=== PATIENT | male | born 1940 | race Caucasian/White ===

== ENCOUNTER → 2016-06-21 | Outpatient (REF) | payer MEDICARE, OTHER ==
[2016-06-23 00:06] LABS: PSA FREE 1.17 ng/mL; PSA TOTAL 6.5 ng/mL (0.0-4.0)
== END ==
LOC: M LAB REF 12:39
PROVIDERS: ATTEND Internal Medicine
DX: R97.20 Elevated prostate specific antigen [PSA] (principal)

== ENCOUNTER → 2016-12-27 | Outpatient (REF) | payer MEDICARE, OTHER ==
[2016-12-28 14:13] LABS: PSA % FREE 22.1 % (.); PSA FREE 1.15 ng/mL; PSA TOTAL 5.2 ng/mL (0.0-4.0)
== END ==
LOC: M LAB REF 13:37
PROVIDERS: ATTEND Internal Medicine
DX: R97.20 Elevated prostate specific antigen [PSA] (principal)

== ENCOUNTER → 2017-07-04 | Outpatient (REF) | payer MEDICARE, OTHER ==
[2017-07-05 14:57] LABS: PSA % FREE 23.8 % (.); PSA FREE 1.19 ng/mL
== END ==
LOC: M LAB REF 13:10
DX: R97.20 Elevated prostate specific antigen [PSA] (principal)
CPT/HCPCS: 84154

== ENCOUNTER → 2019-01-14 | Outpatient (REF) | payer MEDICARE, OTHER ==
[2019-01-16 00:08] LABS: PSA % FREE 25.5 % (.); PSA FREE 1.2 ng/mL; PSA TOTAL 4.7 ng/mL (0.0-4.0)
== END ==
LOC: M LAB REF 13:34
PROVIDERS: ATTEND Internal Medicine
DX: R97.20 Elevated prostate specific antigen [PSA] (principal)

== ENCOUNTER → 2020-02-04 | Outpatient (REF) | payer MEDICARE, OTHER ==
[2020-02-05 23:07] LABS: PSA % FREE 30.9 % (.); PSA FREE 1.45 ng/mL; PSA TOTAL 4.7 ng/mL (0.0-4.0)
== END ==
LOC: M LAB REF 12:28
PROVIDERS: ATTEND Internal Medicine
DX: R97.20 Elevated prostate specific antigen [PSA] (principal); E29.1 Testicular hypofunction

== ENCOUNTER → 2021-10-13 | Outpatient (REF) | payer MEDICARE, OTHER ==
[2021-10-13 13:38] LABS: FOLATE 8.9 NG/ML
== END ==
LOC: M LAB REF 12:39
PROVIDERS: ATTEND Internal Medicine
DX: R41.81 Age-related cognitive decline (principal)

== ENCOUNTER → 2021-11-03 | Outpatient (CLI) | payer MEDICARE, BC, OTHER | LOC: M PLAIMG 10:09 | PROVIDERS: ATTEND Internal Medicine | DX: R41.81 Age-related cognitive decline (principal) ==

== ENCOUNTER → 2022-02-15 | Outpatient (REF) | payer MEDICARE, BC, OTHER ==
[2022-02-16 13:09] LABS: PSA % FREE 25.6 % (.); PSA FREE 1.59 ng/mL; PSA TOTAL 6.2 ng/mL (0.0-4.0)
== END ==
LOC: M LAB REF 12:04
PROVIDERS: ATTEND Internal Medicine
DX: R97.20 Elevated prostate specific antigen [PSA] (principal)

== ENCOUNTER → 2022-06-07 | Outpatient (REF) | payer MEDICARE, BC, OTHER ==
[2022-06-07 15:18] LABS: FOLATE 7.8 NG/ML (>5.4)
[2022-06-08 19:08] LABS: ALBUMIN 3.6 g/dL (2.9-4.4); ALPHA-1-GLOBULINS 0.3 g/dL (0.0-0.4); ALPHA-2-GLOBULINS 0.7 g/dL (0.4-1.0); BETA-1-GLOBULINS 0.9 g/dL (0.7-1.3); GAMMA GLOBULINS 1.1 g/dL (0.4-1.8); TOTAL PROTEIN ELECTROPHORESIS 6.6 g/dL (6.0-8.5)
== END ==
LOC: M LAB REF 12:20
PROVIDERS: ATTEND Internal Medicine
DX: E53.8 Deficiency of other specified B group vitamins (principal); R26.89 Other abnormalities of gait and mobility; G60.9 Hereditary and idiopathic neuropathy, unspecified

== ENCOUNTER → 2022-06-16 | Outpatient (CLI) | payer MEDICARE, BC, OTHER ==
[~2022-06-16] MED LIST: E-Z-GAS II EFFERVESCENT PACKET (SODIUM BICARB./CITRIC ACID/SIMETHICONE) As Ordered ONE; E-Z-HD 98% w/w 340GM SUSP BTL As Ordered ONE; E-Z-PAQUE 96% w/w SUSP 176GM BTL As Ordered ONE
== END ==
LOC: M RAD 07:23
PROVIDERS: ATTEND Internal Medicine
DX: R13.12 Dysphagia, oropharyngeal phase (principal); K44.9 Diaphragmatic hernia without obstruction or gangrene

== ENCOUNTER → 2023-02-19 | Outpatient (REF) | payer MEDICARE, BC, OTHER ==
[2023-02-21 23:09] LABS: PSA % FREE 22.4 % (.); PSA FREE 1.99 ng/mL; PSA TOTAL 8.9 ng/mL (0.0-4.0)
== END ==
LOC: M LAB REF 16:30
PROVIDERS: ATTEND Internal Medicine
DX: R97.20 Elevated prostate specific antigen [PSA] (principal)

== ENCOUNTER 2023-03-07 08:16 | Outpatient (RCR) | payer MEDICARE, BC, OTHER | END 2023-04-05 | LOC: M ST 08:16 | PROVIDERS: ATTEND Internal Medicine | DX: R13.12 Dysphagia, oropharyngeal phase (principal) ==

== ENCOUNTER → 2023-03-07 | Outpatient (CLI) | payer MEDICARE, BC, OTHER | LOC: M PLAIMG 13:09 | PROVIDERS: ATTEND Internal Medicine | DX: R63.4 Abnormal weight loss (principal); R05.9 Cough, unspecified; J47.9 Bronchiectasis, uncomplicated; J98.11 Atelectasis; R91.8 Other nonspecific abnormal finding of lung field ==

== ENCOUNTER → 2023-04-23 | Outpatient (CLI) | payer MEDICARE, BC, OTHER ==
[~2023-04-23] MED LIST changes: +BARIUM SULFATE 700 MG TABLET (E-Z-DISK) As Ordered ONE; -E-Z-GAS II EFFERVESCENT PACKET (SODIUM BICARB./CITRIC ACID/SIMETHICONE) As Ordered ONE; -E-Z-HD 98% w/w 340GM SUSP BTL As Ordered ONE; +VARIBAR NECTAR 40% w/v 240ML SUSP BTL As Ordered ONE; +VARIBAR PUDDING 40% w/v 230ML TUBE As Ordered ONE
== END ==
LOC: M RAD 12:49
PROVIDERS: ATTEND Internal Medicine
DX: R13.12 Dysphagia, oropharyngeal phase (principal)

== ENCOUNTER 2023-06-04 09:33 | Outpatient (RCR) | payer MEDICARE, BC, OTHER | END 2023-06-06 | LOC: M ST 09:33 | PROVIDERS: ATTEND Internal Medicine | DX: R13.12 Dysphagia, oropharyngeal phase (principal) ==

== ENCOUNTER → 2023-08-01 | Outpatient (REF) | payer MEDICARE, BC, OTHER ==
[2023-08-01 14:05] LABS: FOLATE > 24.0 NG/ML (>5.4); VITAMIN B12 LEVEL 666 PG/ML (211-911)
== END ==
LOC: M LAB REF 13:01
PROVIDERS: ATTEND Internal Medicine
DX: E53.8 Deficiency of other specified B group vitamins (principal)

== ENCOUNTER 2023-08-14 13:56 | Emergency (ER) | payer MEDICARE, BC, OTHER ==
[~2023-08-14] VITALS: Ht 175.3 cm; Wt 67.2 kg
[2023-08-14] MEDS ORDERED: MULT1TAB8 PO (14:27)
[2023-08-14 20:43] LABS: BLOOD UREA NITROGEN 27 MG/DL (9-23); CALCIUM LEVEL 9.6 MG/DL (8.3-10.6); CARBON DIOXIDE LEVEL 32 MMOL/L (20-31); CHLORIDE LEVEL 105 MMOL/L (98-107); CREATININE FOR GFR 0.77 MG/DL (0.70-1.30); GLOMERULAR FILTRATION RATE > 60.0 (>35); GLUCOSE, FASTING 108 MG/DL (74-106); MAGNESIUM LEVEL 1.9 MG/DL (1.8-2.4); POTASSIUM SERUM 4.1 MMOL/L (3.5-5.1); SODIUM LEVEL 140 MMOL/L (136-145)
[2023-08-14 21:29] VITALS: BP 123/94; TEMP 98.6; O2SAT 96
== END 2023-08-14 21:31 | disposition home or self-care (01) ==
LOC: M ED 13:56
DX: S00.81XA Abrasion of other part of head, initial encounter (principal); W06.XXXA Fall from bed, initial encounter; I49.8 Other specified cardiac arrhythmias; I49.3 Ventricular premature depolarization; I44.4 Left anterior fascicular block; Z79.899 Other long term (current) drug therapy; Z91.048 Other nonmedicinal substance allergy status; Y92.009 Unspecified place in unspecified non-institutional (private) residence as the place of occurrence of the external cause; Y93.89 Activity, other specified; Y99.9 Unspecified external cause status

== ENCOUNTER → 2023-08-29 | Outpatient (CLI) | payer MEDICARE, BC ==
[~2023-08-29] MED LIST changes: -BARIUM SULFATE 700 MG TABLET (E-Z-DISK) As Ordered ONE; -E-Z-PAQUE 96% w/w SUSP 176GM BTL As Ordered ONE; +MULT1TAB8 PO; -VARIBAR NECTAR 40% w/v 240ML SUSP BTL As Ordered ONE; -VARIBAR PUDDING 40% w/v 230ML TUBE As Ordered ONE
== END ==
LOC: M PLAIMG 11:11
PROVIDERS: ATTEND Internal Medicine
DX: R41.81 Age-related cognitive decline (principal)

== ENCOUNTER 2024-01-29 07:15 | Emergency (ER) | payer MEDICARE, BC ==
[~2024-01-29] VITALS: Ht 180.3 cm; Wt 66.6 kg
[2024-01-29] MEDS ORDERED: ISOVUE-370 76% 100ML VIAL As Ordered ONE (07:57)
[2024-01-29 08:10] LABS: BASO % 0.2 % (0.0-1.0); HEMATOCRIT 40.1 % (42.0-52.0); HEMOGLOBIN 14.1 g/dl (13.5-17.5); LYMPH # 0.8 10^3/uL (1.5-5.0); LYMPH % 6.2 % (24.0-44.0); MEAN CORPUSCULAR HEMOGLOBIN 33.4 pg (27.0-33.0); MEAN CORPUSCULAR HGB CONC 35.2 g/dl (32.0-36.5); MONO # 1.5 10^3/uL (0.0-0.8); MONO % 11.5 % (2.0-8.0); NEUTROPHILS # 10.9 10^3/uL (1.5-8.5); NEUTROPHILS % 81.7 % (36.0-66.0); PLATELET COUNT, AUTOMATED 196 10^3/uL (150-450); RED BLOOD COUNT 4.22 10^6/uL (4.30-6.10); WHITE BLOOD COUNT 13.4 10^3/uL (4.0-10.0)
[2024-01-29 08:25] LABS: INR 1.39; PARTIAL THROMBOPLASTIN TIME 30.8 SECONDS (24.8-34.2); PROTHROMBIN TIME 16.6 SECONDS (12.5-14.5)
[2024-01-29 08:44] LABS: CK-MB VALUE MASS < 1.0 NG/ML (<3.6)
[2024-01-29 08:46] LABS: BLOOD UREA NITROGEN 17 MG/DL (9-23); CALCIUM LEVEL 9.3 MG/DL (8.3-10.6); CARBON DIOXIDE LEVEL 29 MMOL/L (20-31); CHLORIDE LEVEL 101 MMOL/L (98-107); CPK CREATINE PHOSPHOKINASE 149 U/L (46-171); CREATININE FOR GFR 0.79 MG/DL (0.70-1.30); GLOMERULAR FILTRATION RATE > 60.0 (>35); GLUCOSE, FASTING 140 MG/DL (74-106); MB/CK RELATIVE INDEX 0.67 (< OR =4); POTASSIUM SERUM 4.5 MMOL/L (3.5-5.1); SODIUM LEVEL 137 MMOL/L (136-145)
[2024-01-29 08:52] LABS: PROCALCITONIN 0.15 ng/ml
[2024-01-29 09:28] LABS: CK-MB VALUE MASS 1.1 NG/ML (<3.6)
[2024-01-29 09:32] LABS: MB/CK RELATIVE INDEX 0.7 (< OR =4)
[2024-01-29] MEDS: NS 500 ML IV ONE (10:19)
[2024-01-29] MEDS: ACETAMINOPHEN TAB 650MG DOSE (2X325MG) PO ONE (10:19)
[2024-01-29] MEDS ORDERED: LEVO750T14 PO (10:59)
[2024-01-29] MEDS: LevoFLOXacin 750 MG TABLET PO ONE (11:15)
[2024-01-29 11:20] VITALS: BP 147/68; TEMP 98.3; O2SAT 94
== END 2024-01-29 11:45 | disposition home or self-care (01) ==
LOC: EDBD 07:15 → M ED 07:15
DX: J18.9 Pneumonia, unspecified organism (principal); R53.81 Other malaise; J98.11 Atelectasis; I44.4 Left anterior fascicular block; J45.909 Unspecified asthma, uncomplicated; I10 Essential (primary) hypertension; F03.90 Unspecified dementia, unspecified severity, without behavioral disturbance, psychotic disturbance, mood disturbance, and anxiety; Z79.899 Other long term (current) drug therapy; Z79.2 Long term (current) use of antibiotics; Z88.0 Allergy status to penicillin; Z88.1 Allergy status to other antibiotic agents
CPT/HCPCS: 70450; 70496; 70498; 71045; 80047; 80048; 81001; 82140; 82550; 82553; 83605; 84145; 84484; 85025; 85610; 85730; 86850; 86900; 86901; 87040; 87486; 87581; 87633; 87798; 93005; 93041; 94760; 96360; 99285; Q9967

== ENCOUNTER 2024-02-01 05:49 | Inpatient (IN) | payer MEDICARE, BC ==
[~2024-02-01] VITALS: Ht 180.3 cm; Wt 66.6 kg
[~2024-02-01 05:49] MED LIST changes: +LEVO750T14 PO
[2024-02-01 06:30] LABS: BASO % 0.6 % (0.0-1.0); EOS # 0.1 10^3/uL (0.0-0.5); EOS % 0.8 % (0.0-3.0); HEMATOCRIT 36.6 % (42.0-52.0); HEMOGLOBIN 12.7 g/dl (13.5-17.5); LYMPH # 0.8 10^3/uL (1.5-5.0); LYMPH % 10.8 % (24.0-44.0); MEAN CORPUSCULAR HEMOGLOBIN 33.6 pg (27.0-33.0); MEAN CORPUSCULAR HGB CONC 34.7 g/dl (32.0-36.5); MEAN CORPUSCULAR VOLUME 96.8 fl (80.0-96.0); MONO # 0.6 10^3/uL (0.0-0.8); MONO % 8.9 % (2.0-8.0); NEUTROPHILS # 5.7 10^3/uL (1.5-8.5); NEUTROPHILS % 78.5 % (36.0-66.0); PLATELET COUNT, AUTOMATED 229 10^3/uL (150-450); RED BLOOD COUNT 3.78 10^6/uL (4.30-6.10); WHITE BLOOD COUNT 7.2 10^3/uL (4.0-10.0)
[2024-02-01 06:50] LABS: ALBUMIN 2.7 G/DL (3.2-5.2); ALKALINE PHOSPHATASE 69 U/L (46-116); ALT/SGPT 22 U/L (7.0-40); AST/SGOT 26 U/L (<34); BILIRUBIN,DIRECT 0.3 MG/DL (<0.4); BILIRUBIN,TOTAL 0.8 MG/DL (0.3-1.2); BLOOD UREA NITROGEN 19 MG/DL (9-23); CALCIUM LEVEL 9.5 MG/DL (8.3-10.6); CARBON DIOXIDE LEVEL 28 MMOL/L (20-31); CHLORIDE LEVEL 106 MMOL/L (98-107); CREATININE FOR GFR 0.74 MG/DL (0.70-1.30); GLOMERULAR FILTRATION RATE > 60.0 (>35); GLUCOSE, FASTING 124 MG/DL (74-106); POTASSIUM SERUM 4.2 MMOL/L (3.5-5.1); SODIUM LEVEL 138 MMOL/L (136-145); TOTAL PROTEIN 6.2 G/DL (5.7-8.2)
[2024-02-01] MEDS ORDERED: HOME MED LIST COMPLETE! XX SCH (11:35)
[2024-02-01] MEDS ORDERED: THERTAB52 PO (11:35)
[2024-02-01] MEDS ORDERED: LEVO1TAB40 PO (11:35)
[2024-02-01] MEDS ORDERED: IPRATROPIUM 0.5MG/ALBUTEROL 2.5MG INH SOL UD 3ML (DUONEB) NEB PRN (13:15)
[2024-02-01] MEDS ORDERED: ISOVUE-370 76% 100ML VIAL As Ordered ONE (13:22)
[2024-02-01 15:25] LABS: THYROID STIMULATING HORMONE 2.478 uIU/ML (0.55-4.78)
[2024-02-01 15:34] LABS: CPK CREATINE PHOSPHOKINASE 117 U/L (46-171); PROCALCITONIN 0.11 ng/ml
[2024-02-01] MEDS: cefTRIAXone SOD 1 GM in DEXTROSE 5% (D5W) ADV/MINI-BAG 50 ML IV SCH (17:03)
[2024-02-01 17:41] VITALS: BP 179/101; TEMP 98.6; O2SAT 97
[2024-02-01] MEDS: DOXYCYCLINE HYCLATE 100 MG in D5W MINI-BAG PLUS 100 ML IV SCH (18:31)
[2024-02-01] MEDS: amLODIPine 5 MG TAB PO ONE (19:19)
[2024-02-01 20:00] VITALS: O2SAT 95
[2024-02-01] MEDS: SYMBICORT 80/4.5MCG INHALER 6GM INH SCH (20:11)
[2024-02-01] MEDS: IPRATROPIUM 0.5MG/ALBUTEROL 2.5MG INH SOL UD 3ML (DUONEB) NEB SCH (20:11)
[2024-02-01 20:27] VITALS: BP 155/79; TEMP 98.6; O2SAT 93
[2024-02-01] MEDS: RAMELTEON 8 MG TAB (ROZEREM) PO PRN (20:58)
[2024-02-02] VITALS: O2SAT 79
[2024-02-02 03:12] VITALS: BP 132/85; TEMP 98.6; O2SAT 95
[2024-02-02 06:49] LABS: HEMATOCRIT 37.3 % (42.0-52.0); HEMOGLOBIN 12.6 g/dl (13.5-17.5); MEAN CORPUSCULAR HEMOGLOBIN 32.1 pg (27.0-33.0); MEAN CORPUSCULAR HGB CONC 33.8 g/dl (32.0-36.5); MEAN CORPUSCULAR VOLUME 95.2 fl (80.0-96.0); PLATELET COUNT, AUTOMATED 297 10^3/uL (150-450); RED BLOOD COUNT 3.92 10^6/uL (4.30-6.10); WHITE BLOOD COUNT 8.3 10^3/uL (4.0-10.0)
[2024-02-02 07:11] LABS: BLOOD UREA NITROGEN 15 MG/DL (9-23); CALCIUM LEVEL 9.7 MG/DL (8.3-10.6); CARBON DIOXIDE LEVEL 28 MMOL/L (20-31); CHLORIDE LEVEL 103 MMOL/L (98-107); CREATININE FOR GFR 0.64 MG/DL (0.70-1.30); GLOMERULAR FILTRATION RATE > 60.0 (>35); GLUCOSE, FASTING 134 MG/DL (74-106); POTASSIUM SERUM 3.9 MMOL/L (3.5-5.1); SODIUM LEVEL 137 MMOL/L (136-145)
[2024-02-02] MEDS: ENOXAPARIN 40MG/0.4ML SYRINGE (J1650 PER 10MG) SC SCH (08:50)
[2024-02-02 11:48] VITALS: O2SAT 93
[2024-02-02 12:00] VITALS: BP 157/78; TEMP 98.6; O2SAT 95
[2024-02-02 14:33] VITALS: O2SAT 89
[2024-02-02 20:00] VITALS: BP 102/58; TEMP 98.1; O2SAT 93; O2SAT 94
[2024-02-02] MEDS: QUEtiapine FUMARATE 25 MG TAB PO SCH (20:47)
[2024-02-03] VITALS (9 sets, daily range): BP systolic 103–133; BP diastolic 49–65; TEMP 97–98.4; O2SAT 68–93
[2024-02-03 07:04] LABS: BASO % 0.3 % (0.0-1.0); EOS # 0.1 10^3/uL (0.0-0.5); EOS % 0.6 % (0.0-3.0); HEMATOCRIT 38.4 % (42.0-52.0); HEMOGLOBIN 12.7 g/dl (13.5-17.5); LYMPH # 0.8 10^3/uL (1.5-5.0); LYMPH % 6.2 % (24.0-44.0); MEAN CORPUSCULAR HEMOGLOBIN 32.2 pg (27.0-33.0); MEAN CORPUSCULAR HGB CONC 33.1 g/dl (32.0-36.5); MEAN CORPUSCULAR VOLUME 97.2 fl (80.0-96.0); MONO # 0.9 10^3/uL (0.0-0.8); MONO % 7.2 % (2.0-8.0); NEUTROPHILS # 10.6 10^3/uL (1.5-8.5); NEUTROPHILS % 85.4 % (36.0-66.0); PLATELET COUNT, AUTOMATED 314 10^3/uL (150-450); RED BLOOD COUNT 3.95 10^6/uL (4.30-6.10); WHITE BLOOD COUNT 12.4 10^3/uL (4.0-10.0)
[2024-02-03 07:47] LABS: BLOOD UREA NITROGEN 22 MG/DL (9-23); CALCIUM LEVEL 9.2 MG/DL (8.3-10.6); CARBON DIOXIDE LEVEL 30 MMOL/L (20-31); CHLORIDE LEVEL 103 MMOL/L (98-107); CREATININE FOR GFR 0.81 MG/DL (0.70-1.30); GLOMERULAR FILTRATION RATE > 60.0 (>35); GLUCOSE, FASTING 137 MG/DL (74-106); POTASSIUM SERUM 4.5 MMOL/L (3.5-5.1); SODIUM LEVEL 137 MMOL/L (136-145)
[2024-02-03] MEDS: guaiFENesin ER TABLET 600 MG TAB PO SCH (11:02)
[2024-02-03] MEDS: SODIUM CHLORIDE HYPERTONIC 3% 4ML NEB SOL INH SCH (15:29)
[2024-02-03] MEDS: CEFEPIME HCL 2 GM in DEXTROSE 5% (D5W) ADV/MINI-BAG 50 ML IV SCH (16:23)
[2024-02-03] MEDS: DOXYCYCLINE HYCLATE 100MG TABLET PO SCH (20:34)
[2024-02-03] MEDS: QUEtiapine FUMARATE 12.5 MG HALF-TAB PO SCH (20:34)
[2024-02-04] VITALS (12 sets, daily range): BP systolic 102–152; BP diastolic 22–95; TEMP 97.2–98.8; O2SAT 78–97
[2024-02-04 05:42] LABS: HEMATOCRIT 37.2 % (42.0-52.0); HEMOGLOBIN 12.2 g/dl (13.5-17.5); MEAN CORPUSCULAR HEMOGLOBIN 32.2 pg (27.0-33.0); MEAN CORPUSCULAR HGB CONC 32.8 g/dl (32.0-36.5); MEAN CORPUSCULAR VOLUME 98.2 fl (80.0-96.0); PLATELET COUNT, AUTOMATED 312 10^3/uL (150-450); RED BLOOD COUNT 3.79 10^6/uL (4.30-6.10); WHITE BLOOD COUNT 10.7 10^3/uL (4.0-10.0)
[2024-02-04] MEDS: guaiFENesin SYRUP 200MG 10ML UDC PO SCH (10:57)
[2024-02-04] MEDS: ACETAMINOPHEN 500 MG TAB PO PRN (13:45)
[2024-02-05 04:00] VITALS: BP 129/58; TEMP 97.9; O2SAT 99
[2024-02-05 08:28] LABS: BASO % 0.3 % (0.0-1.0); EOS # 0.4 10^3/uL (0.0-0.5); EOS % 4.1 % (0.0-3.0); HEMATOCRIT 36.7 % (42.0-52.0); LYMPH # 0.6 10^3/uL (1.5-5.0); LYMPH % 6.5 % (24.0-44.0); MEAN CORPUSCULAR HEMOGLOBIN 31.8 pg (27.0-33.0); MEAN CORPUSCULAR HGB CONC 32.7 g/dl (32.0-36.5); MEAN CORPUSCULAR VOLUME 97.3 fl (80.0-96.0); MONO # 0.6 10^3/uL (0.0-0.8); MONO % 6.6 % (2.0-8.0); NEUTROPHILS % 81.9 % (36.0-66.0); PLATELET COUNT, AUTOMATED 319 10^3/uL (150-450); RED BLOOD COUNT 3.77 10^6/uL (4.30-6.10); WHITE BLOOD COUNT 9.7 10^3/uL (4.0-10.0)
[2024-02-05 09:00] LABS: BLOOD UREA NITROGEN 23 MG/DL (9-23); CALCIUM LEVEL 9.7 MG/DL (8.3-10.6); CARBON DIOXIDE LEVEL 29 MMOL/L (20-31); CHLORIDE LEVEL 105 MMOL/L (98-107); CREATININE FOR GFR 0.65 MG/DL (0.70-1.30); GLOMERULAR FILTRATION RATE > 60.0 (>35); GLUCOSE, FASTING 117 MG/DL (74-106); POTASSIUM SERUM 4.3 MMOL/L (3.5-5.1); SODIUM LEVEL 139 MMOL/L (136-145)
[2024-02-05 09:20] VITALS: O2SAT 95
[2024-02-05] MEDS ORDERED: VARIBAR PUDDING 40% w/v 230ML TUBE As Ordered ONE (11:02)
[2024-02-05] MEDS ORDERED: VARIBAR NECTAR 40% w/v 240ML SUSP BTL As Ordered ONE (11:03)
[2024-02-05] MEDS ORDERED: E-Z-PAQUE 96% w/w SUSP 176GM BTL As Ordered ONE (11:03)
[2024-02-05] MEDS ORDERED: BARIUM SULFATE 700 MG TABLET (E-Z-DISK) As Ordered ONE (11:03)
[2024-02-05 12:00] VITALS: BP 134/63; TEMP 97.7; O2SAT 97
[2024-02-05 14:36] LABS: IMMUNOGLOBULIN A 185.8 MG/DL (40-350); IMMUNOGLOBULIN G 921 MG/DL (650-1600)
[2024-02-05 14:39] LABS: IMMUNOGLOBULIN E 184.1 IU/ML (0-378)
[2024-02-05 19:56] VITALS: BP 131/99; TEMP 97.9; O2SAT 98
[2024-02-06 01:00] VITALS: O2SAT 96
[2024-02-06 03:43] VITALS: BP 113/61; TEMP 97.5; O2SAT 93
[2024-02-06 12:00] VITALS: BP 140/63; TEMP 98.4; O2SAT 98
[2024-02-06 20:17] VITALS: BP 154/74; TEMP 97.9; O2SAT 97
[2024-02-07 04:00] VITALS: BP 151/74; TEMP 98.4; O2SAT 96
[2024-02-07 05:52] LABS: HEMATOCRIT 36.8 % (42.0-52.0); HEMOGLOBIN 12.2 g/dl (13.5-17.5); MEAN CORPUSCULAR HEMOGLOBIN 31.9 pg (27.0-33.0); MEAN CORPUSCULAR HGB CONC 33.2 g/dl (32.0-36.5); MEAN CORPUSCULAR VOLUME 96.1 fl (80.0-96.0); PLATELET COUNT, AUTOMATED 375 10^3/uL (150-450); RED BLOOD COUNT 3.83 10^6/uL (4.30-6.10); WHITE BLOOD COUNT 7.7 10^3/uL (4.0-10.0)
[2024-02-07 08:05] VITALS: BP 142/59
[2024-02-07] MEDS ORDERED: OLANZapine 2.5MG TABLET PO PRN (09:00)
[2024-02-07 12:00] VITALS: BP 131/76; TEMP 97.9; O2SAT 96
[2024-02-07] MEDS ORDERED: ONDANSETRON 4MG ORAL DISINTEGRATING TAB PO PRN (14:10)
[2024-02-07] MEDS ORDERED: HYOSCYAMINE SULFATE 0.125 MG SUBL TABLET PO PRN (14:10)
[2024-02-07] MEDS: LevoFLOXacin 750 MG TABLET PO SCH (16:12)
[2024-02-07 17:12] LABS: URINE STREP PNEUMONIAE ANTIGEN NOT DETECTED (NOT DETECT)
[2024-02-07] MEDS: LORazepam 1 MG TAB PO PRN (17:54)
[2024-02-07] MEDS: OLANZapine ORAL DISINTEGRATING TAB 5MG PO SCH (20:17)
[2024-02-09] MEDS: MORPHINE 10MG/0.5ML ORAL CONCENTRATE SOLUTION U/D SL PRN (11:27)
[2024-02-09] MEDS: ATROPINE SULFATE 1% OPHTH SOLN 2ML BTL SL PRN (20:50)
[2024-02-09] MEDS: guaiFENesin 200 MG TAB PO SCH (21:00)
[2024-02-09] MEDS: SCOPOLAMINE 1MG TRANSDERMAL PATCH TOP ONE (21:06)
[2024-02-11] MEDS: LORazepam 1 MG TAB PO PRN (17:14)
[2024-02-12] MEDS ORDERED: MORPHINE 10MG/0.5ML ORAL CONCENTRATE SOLUTION U/D SL PRN (12:10)
[2024-02-12] MEDS: MORPHINE 10MG/0.5ML ORAL CONCENTRATE SOLUTION U/D SL SCH (13:38)
[2024-02-12] MEDS: LORazepam 1 MG TAB PO SCH (13:39)
== END 2024-02-13 04:24 | disposition expired | DRG 177 ==
LOC: M ED 05:49 → EDBD 05:49 → M ED INP 05:50 → M MSPAV 17:40 → OBSVTOIN 02-02 12:00
PROVIDERS: ADMIT Internal Medicine; ATTEND Student in an Organized Health Care Education/Training Program
DX: J15.69 Pneumonia due to other Gram-negative bacteria (principal); G93.41 Metabolic encephalopathy; J96.01 Acute respiratory failure with hypoxia; R53.2 Functional quadriplegia; E43 Unspecified severe protein-calorie malnutrition; F03.911 Unspecified dementia, unspecified severity, with agitation; J45.909 Unspecified asthma, uncomplicated; R13.10 Dysphagia, unspecified; I10 Essential (primary) hypertension; J69.0 Pneumonitis due to inhalation of food and vomit; G30.9 Alzheimer's disease, unspecified; F02.80 Dementia in other diseases classified elsewhere, unspecified severity, without behavioral disturbance, psychotic disturbance, mood disturbance, and anxiety; Z51.5 Encounter for palliative care